=== PATIENT | male | born 1965 | race Hispanic/Latino ===

== ENCOUNTER → 2018-08-22 09:04 | Outpatient (CLI) | payer OTHER, SELFPAY ==
[2018-08-22 11:05] LABS: Cholesterol 136 mg/dL (140-199); HDL Cholesterol 39 mg/dL (40-60); LDL Cholesterol Calculated 79 mg/dL (<100); Triglycerides 91 mg/dL (35-150)
[2018-08-22 11:34] LABS: Thyroid Stimulating Hormone 1.64 uIU/mL (0.47-4.68)
== END ==
PROVIDERS: PCP Internal Medicine; Visit Provider Internal Medicine
DX: Z00.00 Encounter for general adult medical examination without abnormal findings (principal)
CPT/HCPCS: 36415; 80061; 84443